=== PATIENT | male | born 1955 | race Caucasian/White ===

== ENCOUNTER → 2016-11-24 | Outpatient (CLI) | payer OTHER ==
[~2016-11-24] MED LIST: ALBUTEROL0.09 MG/A1 IH; ASPIRIN 81MG TA81 MG PO; CARVEDILOL3.125 MG PO; EFFIENT10 M2 PO; LIPITOR40 MG PO; LISINOPRIL 10MG10 MG PO; LISINOPRIL 20MG20 MG PO; LISINOPRIL/HCTZ1 TA3 FT; LORAZEPAM1 MG/TABLE PO; NOMEDS *; NORVASC 10MG. T10 MG PO; ZITHROMAX 250M250 MG PO
--- NOTE | 2016-11-24 14:04 | RADIOLOGY REPORT PS360 ---
EXAM: CT LUNG LOW DOSE WO CONTRAST COMPARISON: None HISTORY: 61-year-old male asymptomatic with greater than 30 pack-year smoking history ORDERING PHYSICIAN: Gracie Melgar MD PATIENT AGE: 61 years TECHNIQUE: The exam was performed on a GE Light Speed [address] scanner using 2.96 mGy CTDI. A low dose helical CT CHEST was performed on a multi-detector scanner The LDCT was performed in a facility that meets the criteria for the screening program. Data regarding this exam was submitted to ACR which is an approved registry. The order for this exam indicates that it came as a result of a lung cancer screening counseling shard decision-making visit that included all the elements required of such a visit including smoking cessation. The radiologist interpreting this exam meets the CMS criteria for the LDCT lung cancer screening program. The exam is reported using the Lung-RADS classification scale and reported to the ACR registry. NOTE: THIS STUDY WAS PERFORMED FOR THE SPECIFIC PURPOSES OF LUNG CANCER SCREENING AND IS NOT AN ALTERNATIVE TO DIAGNOSTIC CHEST CT. RADIATION DOSE: CTDI vol(CT dose Index-volume) = 2.96mG DLP (Dose Length Product) = 121.02 mGcm FINDINGS: No suspicious pulmonary nodules apparent. No effusions or infiltrates. There are some minimal dependent changes along the fissures. Incidental note made of coronary artery calcification. No significant fibrotic change or emphysematous changes apparent IMPRESSION: 1. BI-RADS Category 1 negative. No suspicious abnormalities apparent. Recommendations: Annual screening LDCT
== END ==
LOC: RAD 12:21
DX: F17.200 Nicotine dependence, unspecified, uncomplicated (principal); Z87.891 Personal history of nicotine dependence; Z12.2 Encounter for screening for malignant neoplasm of respiratory organs
CPT/HCPCS: G0297

== ENCOUNTER → 2016-12-25 | Outpatient (CLI) | payer OTHER ==
--- NOTE | 2016-12-25 09:43 | CARDIOVASCULAR REPORT ---
"Cerebrovascular Exam Indications: 780.4 Dizziness and giddiness. IMPRESSIONS 1. The bilateral vertebral arteries are patent with normal antegrade flow. 2. Study suggests 20-49% stenosis involving the right internal carotid artery and the left internal carotid artery. Carotid duplex study. Complete study and Doppler flow study including spectral analysis, color and moyer scale imaging. Location: Vascular laboratory. Patient status: Outpatient. Tables: Arterial flow: + +--------+--------+ |Location |V sys |V ed | + +--------+--------+ |Right CCA - proximal|69cm/s |16.2cm/s| + +--------+--------+ |Right CCA - distal |64.6cm/s|17.9cm/s| + +--------+--------+ |Right ECA |59.9cm/s|--------| + +--------+--------+ |Right ICA - proximal|90.4cm/s|33.9cm/s| + +--------+--------+ |Right ICA - mid |80.5cm/s|29.5cm/s| + +--------+--------+ |Right ICA - distal |70.2cm/s|24.6cm/s| + +--------+--------+ |Right vertebral |31.4cm/s|--------| + +--------+--------+ |Left CCA - proximal |76.6cm/s|23.6cm/s| + +--------+--------+ |Left CCA - distal |71.7cm/s|25.5cm/s| + +--------+--------+ |Left ECA |64.8cm/s|--------| + +--------+--------+ |Left ICA - proximal |51.1cm/s|19.2cm/s| + +--------+--------+ |Left ICA - mid |53cm/s |19.6cm/s| + +--------+--------+ |Left ICA - distal |39.9cm/s|17.6cm/s| + +--------+--------+ |Left vertebral |39.3cm/s|--------| + +--------+--------+ Velocity ratios: + + + + + + | |Right, V sys|Right, V ed|Left, V sys|Left, V ed| + + + + + + |Max ICA/dist CCA|1.4 |1.89 |0.74 |0.77 | + + + + + + (Report amended ) Electronically signed by: Abran Borja [id number]"
== END ==
LOC: RT 08:31
DX: I65.23 Occlusion and stenosis of bilateral carotid arteries (principal)

== ENCOUNTER → 2017-03-05 | Outpatient (CLI) | payer OTHER ==
--- NOTE | 2017-03-05 17:42 | RADIOLOGY REPORT PS360 ---
ECHO ADULT PROCEDURE: INDICATIONS FOR THE TEST: Chest pain + COPD Heart Murmur Tobacco Smoking Palpitations Fatigue+ Syncope Edema Hypertension+Diabetes Mellitus Rheumatic Fever SOB+MANCERA Obesity Hyperlipidemia+ Family History HD Additional History PATIENT INFORMATION HEIGHT: 72 WEIGHT:284 GENDER: Male B/P:120/84 2-D/M-MODE INTERPRETATION: 2-D MEASUREMENTS OBSERVED VALUES IN CMS Right Ventricular Dimension (RVDd) 1.8 Interventricular Septum (Thickness)(IVsd) 1.0 Left Ventricular Internal Dimensions(LVIDd) 5.5 Left Ventricular Posterior Wall (Thickness)(LVPWd) 1.2 Aortic Root 4.1 Aortic Cusp Separation 2.2 Left Atrial Dimensions (LAD) 4.1 2D 1. Left atrium is mildly enlarged, left ventricle is normal size, mild concentric left ventricular hypertrophy, visually estimated ejection fraction 55% with no obvious regional wall motion abnormality. 2. The right atrium and right ventricle are normal size and contractility. 3. The aortic valve is minimally thickened and calcified leaflet continue to display good mobility. 4. The mitral and tricuspid valvular minimally thickened. 5. The pulmonic valve is thickened and fibrosed. 6. No significant pericardial effusion noted. DOPPLER INTERROGATION: Doppler interrogation of the aortic mitral and tricuspid valvular presence of mild mitral, mild aortic and tricuspid regurgitation, tricuspid regurgitant jet velocity insufficient for calculation of the right ventricular systolic pressure, grade 1 diastolic dysfunction seen without tissue Doppler evidence of raised left atrial pressure. CONCLUSION: 1. Mildly enlarged left atrium, normal left ventricular size, mild concentric left ventricular hypertrophy, visually estimated ejection fraction 55% with no obvious regional wall motion abnormality. Grade 1 diastolic dysfunction seen without tissue Doppler evidence of raised left atrial pressure. 2. Mild aortic, mild mitral and tricuspid regurgitation, right cuspid regurgitant jet velocity insufficient for calculation of the right ventricular systolic pressure. 3. No significant pericardial effusion noted.
== END ==
LOC: RT 13:48
DX: R07.9 Chest pain, unspecified (principal); R53.83 Other fatigue; I25.10 Atherosclerotic heart disease of native coronary artery without angina pectoris; I10 Essential (primary) hypertension; E78.5 Hyperlipidemia, unspecified

== ENCOUNTER 2017-05-13 09:34 | Emergency (ER) | payer OTHER ==
[~2017-05-13] VITALS: Ht 182.9 cm; Wt 128.8 kg
--- NOTE | 2017-05-13 09:37 | Emergency Room Report ---
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 Clinical Suspician of Infection? Mental Status: Sepsis Risk: Have you (or family members/close friends) recently traveled outside the [place]? If Yes, where/when: Have you had exposure to infectious disease within the past month? TB? Other? Specify: Source patient, RN notes reviewed Exam Limitations no limitations Comment Pt is out of his Ranexa 500 mg BID and went to [facility] to get it filled but they didnot have it. They ordered it and charged his insurance but the pt still does not have his Ranexa and needs. it. Cardiac Chest Pain Chest pain indicative of cardiac No ALLERGIES Coded Allergies: No Known Allergies (11/23/15) Home Medications Reported Medications ASPIRIN (Aspirin) 81 MG PO DAILY LISINOPRIL (Lisinopril) 10 MG PO BID Clonazepam (Clonazepam 1MG) 1 MG PO BIDP PRN ANXIETY #60 History Medical History General Angina: Yes [place]: No Hypertension? Yes Hyperlipidemia? Yes CHF? No COPD? No Asthma? No Hernia? No CVA? No Seizures? No Diabetes? No UTI? No Stones? No GB Disease: No Hepatitis? No Cataracts? No Glaucoma? No MRSA? No TB? No Cancer? No More? No Immunization Hx DT/Tetanus 1-4 YRS Flu Refused Pneumonia Never Had Surgical Hx Previous Surgery?Y L LEG Appendix HEART CATH 11/2015 Family History Family Hx Diabetes No CAD Yes Hypertension Yes Hyperlipidemia Yes Cancer Yes TB No Social History Smoking Hx Packs/day 1 1/2 - 2 Packs Alcohol Alcohol: No Review of Systems All Other Systems Reviewed and Negative Constitutional see HPI Cardiovascular see HPI Physical Exam Vital Signs Vital Signs Date Time Temp Pulse Resp B/P Pulse O2 O2 Flow FiO2 Ox Delivery Rate 05/13 0936 98.2 76 18 124/74 97 General Appearance normal appearance, WD/WN, no apparent distress Respiratory Status No: respiratory distress. 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 No Results/Orders Current Medication Orders Sig/Donte Start time Last Medication Dose Route Stop Time Status Admin Ranolazine 500 MG ONCE ONE 05/13 1000 AC PO 05/13 1001 Departure Departure Time of Disposition 0953 Disposition DC Home or Self Care(routine) Clinical Impression Primary Impression: Coronary artery disease Qualifiers: Coronary Disease-Associated Artery/Lesion type: [place] artery [place] vs. transplanted heart: [place] heart Associated angina: without angina Qualified Code: I25.10 - Atherosclerotic heart disease of [place] coronary artery without angina pectoris Condition STABLE Referrals Gracie Melgar MD (Family): 2 Days-Call Office Additional Instructions Pt given a dose of Ranexa ER 500 mg now in the ED and his pharmacy is trying to get his medicine now Discharge Counseling Counseled pt/family regarding diagnosis ED Critical Care Critical Care No If Critical Care minutes are documented, the time involved in the performance of seperately reportable procedures was not counted toward critical care time documented. I directly delivered medical care to this critically ill and/or injured patient. Timely evaluation and treatment was necessary to address the significant organ system(s) dysfunction present in this patient. at 0954
--- NOTE | 2017-05-13 09:37 | Emergency Room Report ---
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 Clinical Suspician of Infection? Mental Status: Sepsis Risk: Have you (or family members/close friends) recently traveled outside the [place]? If Yes, where/when: Have you had exposure to infectious disease within the past month? TB? Other? Specify: Source patient, RN notes reviewed Exam Limitations no limitations Comment Pt is out of his Ranexa 500 mg BID and went to [facility] to get it filled but they didnot have it. They ordered it and charged his insurance but the pt still does not have his Ranexa and needs. it. Cardiac Chest Pain Chest pain indicative of cardiac No ALLERGIES Coded Allergies: No Known Allergies (11/23/15) Home Medications Reported Medications ASPIRIN (Aspirin) 81 MG PO DAILY LISINOPRIL (Lisinopril) 10 MG PO BID Clonazepam (Clonazepam 1MG) 1 MG PO BIDP PRN ANXIETY #60 History Medical History General Angina: Yes [place]: No Hypertension? Yes Hyperlipidemia? Yes CHF? No COPD? No Asthma? No Hernia? No CVA? No Seizures? No Diabetes? No UTI? No Stones? No GB Disease: No Hepatitis? No Cataracts? No Glaucoma? No MRSA? No TB? No Cancer? No More? No Immunization Hx DT/Tetanus 1-4 YRS Flu Refused Pneumonia Never Had Surgical Hx Previous Surgery?Y L LEG Appendix HEART CATH 11/2015 Family History Family Hx Diabetes No CAD Yes Hypertension Yes Hyperlipidemia Yes Cancer Yes TB No Social History Smoking Hx Packs/day 1 1/2 - 2 Packs Alcohol Alcohol: No Review of Systems All Other Systems Reviewed and Negative Constitutional see HPI Cardiovascular see HPI Physical Exam Vital Signs Vital Signs Date Time Temp Pulse Resp B/P Pulse O2 O2 Flow FiO2 Ox Delivery Rate 05/13 0936 98.2 76 18 124/74 97 General Appearance normal appearance, WD/WN, no apparent distress Respiratory Status No: respiratory distress. 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 No Results/Orders Current Medication Orders Sig/Donte Start time Last Medication Dose Route Stop Time Status Admin Ranolazine 500 MG ONCE ONE 05/13 1000 AC PO 05/13 1001 Departure Departure Time of Disposition 0953 Disposition DC Home or Self Care(routine) Clinical Impression Primary Impression: Coronary artery disease Qualifiers: Coronary Disease-Associated Artery/Lesion type: [place] artery [place] vs. transplanted heart: [place] heart Associated angina: without angina Qualified Code: I25.10 - Atherosclerotic heart disease of [place] coronary artery without angina pectoris Condition STABLE Referrals Gracie Melgar MD (Family): 2 Days-Call Office Additional Instructions Pt given a dose of Ranexa ER 500 mg now in the ED and his pharmacy is trying to get his medicine now Discharge Counseling Counseled pt/family regarding diagnosis ED Critical Care Critical Care No If Critical Care minutes are documented, the time involved in the performance of seperately reportable procedures was not counted toward critical care time documented. I directly delivered medical care to this critically ill and/or injured patient. Timely evaluation and treatment was necessary to address the significant organ system(s) dysfunction present in this patient. at 0954
[2017-05-13 10:11] VITALS: BP 118/69
--- OUTSIDE RECORDS SUMMARY | 2017-05-23 21:11 | External Medical Summary Rpt | CCD ---
Author Author [facility] Organization [employer] Address Unknown Phone Unavailable Purpose Continuity of Care Document - through 2016
--- OUTSIDE RECORDS SUMMARY | 2017-05-23 21:11 | External Medical Summary Rpt ---
Demographics Preferred Language Austrian Marital Status Unknown Pentecostalism Affiliation Unknown Race Unknown Ethnic Group Unknown Author Author MICHELE Address Unknown Phone Immunization No patient found.
--- OUTSIDE RECORDS SUMMARY | 2017-05-23 21:11 | External Medical Summary Rpt ---
Demographics Preferred Language Irish Marital Status Unknown Yarsanism Affiliation Unknown Race Unknown Ethnic Group Unknown Author Author MICHELE Address Unknown Phone Immunization No patient found.
== END 2017-05-13 10:14 | disposition home or self-care (01) ==
LOC: ER 09:34
DX: I25.10 Atherosclerotic heart disease of native coronary artery without angina pectoris (principal); I10 Essential (primary) hypertension; Z79.82 Long term (current) use of aspirin; Z72.0 Tobacco use

== ENCOUNTER → 2017-05-21 | Outpatient (CLI) | payer OTHER ==
[~2017-05-21] MED LIST changes: +CLONAZEPAM 1MG T1 MG PO; +CLOPIDOGREL75 M2 PO; +METOPROLOL SUCC25 M2 PO; +RANEXA500 M1 PO
[2017-05-21 11:18] LABS: BILIRUBIN, INDIRECT 0.53 mg/dL (0-0.9)
== END ==
LOC: LAB 08:38
PROVIDERS: Internal Medicine Cardiovascular Disease
DX: I25.10 Atherosclerotic heart disease of native coronary artery without angina pectoris (principal); I11.9 Hypertensive heart disease without heart failure; E78.5 Hyperlipidemia, unspecified; J44.9 Chronic obstructive pulmonary disease, unspecified